=== PATIENT | male | born 1955 | race Caucasian/White ===

== ENCOUNTER 2019-11-14 15:35 | Outpatient (CLI) | payer MEDICARE | END 2019-11-14 15:36 | disposition EMS.NT | LOC: EMS 15:35 | PROVIDERS: ATTEND Surgery | DX: R46.89 Other symptoms and signs involving appearance and behavior (principal) ==

== ENCOUNTER 2019-11-27 19:22 | Emergency (ER) | payer MEDICARE ==
[2019-11-27 19:30] VITALS: BP 125/90
[2019-11-27] MEDS ORDERED: LIDOCAINE 2% 50 ML MDV SUBQ STA (21:09)
[2019-11-27] MEDS ORDERED: TETANUS/DIPHTHERIA/PERTUSSIS 0.5 ML SYRINGE IM ONE (21:18)
--- NOTE | 2019-11-27 21:20 | ED Physician Documentation ---
History of Present Illness - Stated complaint Stated Complaint: LT ARM LAC - Chief complaint Chief Complaint: Laceration - History obtained from History obtained from: Patient, Family - History of Present Illness Timing: Today Pain level max: 3 Pain level now: 3 Improved by: Nothing Worsened by: Nothing - Additonal information Additional information: 64-year-old male with a history of dementia presents to the emergency department after a fall today. He sustained a laceration/avulsion to the left forearm. Nothing makes it better or worse. Does not recall what happened. No changes in his mental status. No loss of consciousness per . No vomiting. Acting appropriately. He is not on blood thinners. Unknown last tetanus Review of Systems Constitutional: denies: Fever, Chills GI: denies: Vomiting, Diarrhea Skin: denies: Rash Musculoskeletal: denies: Neck pain, Back pain Neurologic: denies: Headache PD PAST MEDICAL HISTORY - Past Medical History Past Medical History: Yes Neuro: Dementia - Allergies Allergies/Adverse Reactions: Allergies Allergy/AdvReac Type Severity Reaction Status Date / Time No Known Drug Allergies Allergy Verified 11/27/19 19:30 PD ED PE NORMAL - Vitals Vital signs reviewed: Yes - General General: No acute distress, Other (Alert, pleasant) - HEENT HEENT: Atraumatic, PERRL, EOMI, Moist mucous membranes - Neck Neck: Supple, no meningeal sign, No bony TTP - Cardiac Cardiac: RRR - Respiratory Respiratory: No respiratory distress, Clear bilaterally - Derm Derm: Warm and dry - Extremities Extremities: Other (V shaped laceration to the volar aspect of the left forearm. Approximately 6 cm. Neurovascular intact) - Neuro Neuro: Alert and oriented X 3 Results - Vitals Vitals: Vital Signs - 24 hr 11/27/19 19:26 Temperature 36.7 C Heart Rate 83 Respiratory 18 Rate Blood Pressure 125/90 H O2 Saturation 99 Oxygen O2 Source Room air Procedures - Laceration (location) L forearm Length in cm: 6 Wound type: Flap, Into subcut fat, Clean Neurovascular status: Sensory intact, Motor intact, Vascular intact Tendon involvement: Tendon intact Anesthesia: Lidocaine 2% Wound Preparation: Irrigated copiously NS, Wound explored, To the base. No: FB identified, FB removed Skin layer closure: [place] Other: Patient tolerated well, No complications, Neurovascular intact, Tetanus booster given (tdap) Complexity: Simple PD MEDICAL DECISION MAKING - ED course Complexity details: considered differential, d/w patient, d/w family ED course: Patient with a laceration to the forearm. This was cleansed and closed with roseline. Tolerated well. Tdap given. Warnings of infection and instructions on wound care given at bedside. Also counseled on how to minimize scarring. Patient and family counseled regarding signs and symptoms for which I believe and urgent re-evaluation would be necessary. Patient with good understanding of and agreement to plan and is comfortable going home at this time This document was made in part using voice recognition software. While efforts are made to proofread this document, sound alike and grammatical errors may occur. Departure - Departure Disposition: 01 Home, Self Care Clinical Impression: Laceration Condition: Good Instructions: ED Laceration Ext Sutr Stap Tape Follow-Up: Sunita Adame MD [Primary Care Provider] - Within 1 week Comments: Follow-up with your doctor in 1 week for a wound check. Follow-up in approximately 2 weeks for staple removal. These wounds occasionally will need wound care as they may have poor healing occasionally. Return for redness, swelling or drainage from the wound. Keep the wound clean.
[2019-11-27] MEDS ORDERED: BACITRACIN ZINC OINT 1 PACKET TOP STA (21:30)
== END 2019-11-27 21:54 | disposition home or self-care (01) ==
LOC: ED 19:22
DX: F03.90 Unspecified dementia, unspecified severity, without behavioral disturbance, psychotic disturbance, mood disturbance, and anxiety (principal); W19.XXXA Unspecified fall, initial encounter
CPT/HCPCS: 12002; 90471; 90715; 99283; 99284; A9270

== ENCOUNTER 2020-07-25 15:11 | Outpatient (CLI) | payer MEDICARE | END 2020-07-25 15:12 | disposition EMS.NT | LOC: EMS 15:11 | PROVIDERS: ATTEND Surgery | DX: R53.1 Weakness (principal) ==